=== PATIENT | female | born 1990 | race Two or more races ===

== ENCOUNTER 2020-02-02 10:25 | Emergency (ER) | payer MEDICAID, OTHER ==
[~2020-02-02] VITALS: Ht 160 cm; Wt 88.5 kg
[2020-02-02 11:36] LABS: Urine Bacteria NONE SEEN /hpf (None Seen); Urine Blood 1+ /uL (Negative); Urine Mucus FEW (None Seen); Urine Specific Gravity 1.021 (1.001-1.035); Urine WBC 1 /hpf (0 - 5)
[2020-02-02 13:20] VITALS: BP 123/68
== END 2020-02-02 13:21 | disposition home or self-care (01) ==
LOC: ER 10:25
DX: O20.0 Threatened abortion (principal); Z3A.08 8 weeks gestation of pregnancy
CPT/HCPCS: 76801; 81001; 81025